=== PATIENT | male | born 1955 | race Hispanic/Latino ===

== ENCOUNTER → 2022-06-30 | Outpatient (CLI) | payer OTHER ==
--- NOTE | 2022-06-30 17:41 | DIREP ---
PROCEDURE:CHEST 2 VIEWS COMPARISON:None. INDICATIONS:Encounter for general adult medical examination without abnormal findings FINDINGS: LUNGS/PLEURA:Low lung volumes. Mild, diffuse interstitial prominence. No pleural effusion or pneumothorax. VASCULATURE:Unremarkable pulmonary vasculature. Calcified aortic arch. CARDIAC:Normal. No cardiac silhouette abnormality or cardiomegaly. MEDIASTINUM:Normal. No visible mass or adenopathy. BONES:Normal. No fracture or visible bony lesion. OTHER:Negative. CONCLUSION: 1. Diffuse interstitial prominence without focal consolidation. Findings could be accentuated by shallow depth of inspiration. Dictated by: Rodrigo Kirby MD on 06/30/2022 at 05:39 PM
== END | disposition home or self-care (01) ==
LOC: RAD 12:43
PROVIDERS: ATTEND Nurse Practitioner
DX: Z00.00 Encounter for general adult medical examination without abnormal findings (principal); J84.9 Interstitial pulmonary disease, unspecified
CPT/HCPCS: 71046